=== PATIENT | male | born 1995 | race Caucasian/White ===

== ENCOUNTER 2019-06-12 16:22 | Emergency (ER) | payer OTHER ==
--- NOTE | 2019-06-12 17:00 | PDOC ---
History of Present Illness - General Chief Complaint: Laceration Stated Complaint: RIGHT LATERAL THIGH LACERATION S/P FALL Time Seen by Provider: 06/12/19 16:42 History Source: Patient Exam Limitations: No Limitations - History of Present Illness Initial Comments: 06/12/19 17:02 24yM w PMHx migraines presenting w R thigh abrasion and ecchymosis. 4d ago at work, fell down on R lateral thigh w subsequent ecchymosis and pain stepping between truck and dock. No head trauma, LOC. Not on blood thinners. Been taking ibuprofen and icing thigh. Able to ambulate. Denies chest pain, SOB, vision change, leg weakness/numbness. Doesn't remember last tdap shot Past History - Past Medical History Allergies/Adverse Reactions: Allergies Allergy/AdvReac Type Severity Reaction Status Date / Time No Known Allergies Allergy Verified 06/12/19 16:58 Home Medications: Ambulatory Orders NK [No Known Home Medication] 06/12/19 Review of Systems - Review of Systems Constitutional: No: Chills, Fever, Unintentional Wgt. Loss HEENTM: No: Recent change in vision, Nose Pain, Throat Pain Respiratory: No: Cough, Shortness of Breath Cardiac (ROS): No: Chest Pain, Lightheadedness, Palpitations ABD/GI: No: Abdominal Distended, Constipated, Diarrhea, Nausea, Vomiting : No: Burning, Dysuria, Discharge Musculoskeletal: Yes: Muscle Pain. No: Back Pain, Joint Pain Integumentary: Yes: Bruising. No: Dryness, Erythema Neurological: No: Headache, Numbness, Seizure, Tingling Psychiatric: No: Anxiety, Depression Endocrine: No: Excessive Sweating, Flushing, Intolerance to Cold, Intolerance to Heat Hematologic/Lymphatic: No: Anemia, Blood Clots *Physical Exam - Physical Exam General Appearance: Yes: Nourished, Appropriately Dressed. No: Apparent Distress HEENT: positive: EOMI, DONALD, Normal Voice, Hearing Grossly Normal. negative: Scleral Icterus (R), Scleral Icterus (L), Nasal Congestion, Rhinorrhea Respiratory/Chest: positive: Lungs Clear, Normal Breath Sounds. negative: Chest Tender, Crackles, Rales, Rhonchi, Stridor, Wheezing Cardiovascular: positive: Regular Rhythm, Regular Rate, S1, S2. 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 negative: Numbness, Sensory Deficit, Confused, Disoriented Medical Decision Making - Medical Decision Making 06/12/19 17:13 24yM w PMHx migraines presenting w R thigh abrasion and ecchymosis s/p mechanical fall sustained 4d ago. Neurovascular intact. Given tdap. DC home w work notice and supportive care instructions. Discharge - Discharge Information Problems reviewed: Yes Clinical Impression/Diagnosis: Abrasion, right thigh, initial encounter Condition: Good Disposition: HOME - Admission No - Follow up/Referral - Patient Discharge Instructions Patient Printed Discharge Instructions: DI for Abrasion Additional Instructions: You were seen for thigh injury after falling. Your history and exam did not show anything concerning. You were given a tetanus shot and a work notice you can use bryce wrap for comfort. Continue to ice and take tylenol or ibuprofen if you continue to have pain. Do not take ibuprofen alone for more than a week. Please follow up with your primary care doctor regarding your visit within one week. call to schedule. Come back to the ED if you cannot walk, leg numbness, or worsening pain despite medication. - Post Discharge Activity Work/Back to School Note: Back to Work
[2019-06-12 17:03] VITALS: BP 124/62; PULSE 81; TEMP 98.7; BMI 22.8
[2019-06-12] MEDS ORDERED: DIPHTH,PERTUSS(ACELL),TET 0.5 ML DISP.SYRIN IM ONE ×2 (17:10→17:29)
--- NOTE | 2019-06-12 17:41 | PDOC ---
Attending Attestation - Resident Resident Name: Morteza Rogel - ED Attending Attestation I have performed the following: I have examined & evaluated the patient, The case was reviewed & discussed with the resident, I agree w/resident's findings & plan, Exceptions are as noted - HPI HPI: 06/12/19 17:34 24 yo male here s/p trip and fall at work 5 days ago. sustained abrasion to his right thigh and hematoma. here today because isn't able to go to work because scared he will hit it, no f/c was co pain on right thigh. has not taken anything for pain prior to arrival. here to have paper work filled out for workers comp. no f/c no numbness. has been ambulatory. did not hit head during fall. - Physicial Exam PE: 06/12/19 17:36 awake alert head atraumatic. no cervical spine tenderness. lungs clear bilat heart rrr no mrg abd soft nt nd ext wwp. no edema. no calf tenderness. skin warm and dry. right thigh with abrasion, hematoma. no erythema. no signs of infection. distally nv intact. hip NT FROM - Medical Decision Making 06/12/19 17:40 24 yo male with abrasion and underlying soft tissue hematoma. will recommedn compression with bryce bandage. topical bacitracin. no current signs of infection. dc home. fu pcp.
== END 2019-06-12 17:47 | disposition home or self-care (01) ==
LOC: FER 16:22
PROC: 3E0234Z Introduction of Serum, Toxoid and Vaccine into Muscle, Percutaneous Approach (ICD-10-PCS; principal; 2019-06-12)
DX: S70.311A Abrasion, right thigh, initial encounter (principal); W18.39XA Other fall on same level, initial encounter; W45.8XXA Other foreign body or object entering through skin, initial encounter; Y93.9 Activity, unspecified; Y92.9 Unspecified place or not applicable
CPT/HCPCS: 90715; 99282-25